=== PATIENT | female | born 1960 | race Caucasian/White ===

== ENCOUNTER 2018-01-31 21:13 | Observation (INO) | payer BC ==
[2018-01-31] MEDS ORDERED: ACETAMINOPHEN 325 MG TAB PO (22:30)
[2018-01-31] MEDS ORDERED: NITROGLYCERIN (SL) 0.4 MG TAB SL (22:30)
[2018-02-01 01:15] LABS: TROPONIN-I < 0.012 ng/ml (0.00-0.12)
[2018-02-01 05:07] LABS: ADD MAN DIFF? NO
[2018-02-01 05:11] LABS: BASOPHILS % 0.6 % (0.0-2.0); EOSINOPHILS # 0.1 10^3/ul (0.0-0.5); EOSINOPHILS % 1.9 % (0.0-7.0); HEMOGLOBIN 12.4 g/dl (12.0-16.0); LYMPHOCYTES # 2.4 10^3/ul (0.8-2.9); LYMPHOCYTES % 33.5 % (15.0-51.0); MEAN CORPUSCULAR HGB CONC 33.5 g/dl (32.0-37.0); MEAN CORPUSCULAR VOLUME 86.7 fl (82.0-101.0); MEAN PLATELET VOLUME 10.9 fl (7.4-10.4); MONOCYTE # 0.5 10^3/ul (0.3-0.9); MONOCYTES % 6.5 % (0.0-11.0); NEUTROPHIL # 4.1 10^3/ul (1.6-7.5); NEUTROPHILS % 57.4 % (39.0-77.0); PLATELET COUNT 248 10^3/UL (140-415); RED BLOOD COUNT 4.27 10^6/ul (4.20-5.40)
[2018-02-01 05:11] LABS: WHITE BLOOD COUNT 7.2 10^3/ul (4.8-10.8)
[2018-02-01 05:34] LABS: ALANINE AMINOTRANSFERASE 18 IU/L (13-69); ALBUMIN 3.8 g/dl (3.3-4.9); ALBUMIN/GLOBULIN RATIO 1.35; ALKALINE PHOSPHATASE 64 IU/L (42-121); ANION GAP 14 (8-16); ASPARTATE AMINO TRANSFERASE 13 IU/L (15-46); BILIRUBIN,INDIRECT 0.1 mg/dl (0-1.1); BILIRUBIN,TOTAL 0.1 mg/dl (0.2-1.3); BLOOD UREA NITROGEN 15 mg/dl (7-20); CALCIUM 9.9 mg/dl (8.4-10.2); CARBON DIOXIDE 30 mmol/L (21-31); CHLORIDE 107 mmol/L (97-110); CREATININE 0.64 mg/dl (0.44-1.00); GLUCOSE 102 mg/dl (70-220); POTASSIUM 4.8 mmol/L (3.5-5.1); SODIUM 146 mmol/L (135-144); TOTAL PROTEIN 6.6 g/dl (6.1-8.1)
[2018-02-01 05:41] LABS: TROPONIN-I < 0.012 ng/ml (0.00-0.12)
[2018-02-01] MEDS: PANTOPRAZOLE (EC) 40 MG TAB PO (05:57)
[2018-02-01 13:53] LABS: TROPONIN-I < 0.012 ng/ml (0.00-0.12)
[2018-02-01] MEDS: GABAPENTIN 100 MG CAP PO ×2 (14:50→23:00)
[2018-02-01] MEDS: CYCLOBENZAPRINE 10 MG TAB PO (14:50)
[2018-02-02] MEDS: PANTOPRAZOLE (EC) 40 MG TAB PO (05:03)
[2018-02-02 07:39] LABS: ANION GAP 16 (8-16); BLOOD UREA NITROGEN 18 mg/dl (7-20); CALCIUM 9.6 mg/dl (8.4-10.2); CARBON DIOXIDE 30 mmol/L (21-31); CHLORIDE 101 mmol/L (97-110); CREATININE 0.71 mg/dl (0.44-1.00); GLUCOSE 103 mg/dl (70-220); POTASSIUM 4.4 mmol/L (3.5-5.1); SODIUM 143 mmol/L (135-144)
[2018-02-02] MEDS: GABAPENTIN 100 MG CAP PO (08:53)
== END 2018-02-02 16:30 | disposition home or self-care (01) ==
LOC: MS4 02-02 05:20 → MS3 21:13
PROVIDERS: Internal Medicine Nephrology
DX: R07.89 Other chest pain (principal); G89.29 Other chronic pain; M54.2 Cervicalgia; M54.9 Dorsalgia, unspecified; E87.0 Hyperosmolality and hypernatremia; M41.9 Scoliosis, unspecified
CPT/HCPCS: 70360; 80048; 80053; 82306; 84484; 85025; 93306; G0378